=== PATIENT | male | born 1970 | race African-American/Black ===

== ENCOUNTER 2022-05-11 10:30 | Inpatient (IN) | payer OTHER ==
[2022-05-11 11:16] VITALS: BMI 27.3
[2022-05-11] MEDS ORDERED: guaiFENesin 200 MG/10 ML 10 ML UNIT-DOSE CUPS PO PRN (13:03)
[2022-05-11] MEDS ORDERED: MAGNESIUM HYDROX 2400MG/30ML ORAL SUSPENSION 30 ML CUP PO PRN (13:03)
[2022-05-11] MEDS ORDERED: P-EPHED 60MG/TRIPROLIDI 2.5MG TABLET PO PRN (13:03)
[2022-05-11] MEDS ORDERED: POLYETHYLENE GLYCOL (HEALTHYLAX) 3350 17 GM PACKET PO PRN (13:03)
[2022-05-11] MEDS ORDERED: BENZOCAINE/MENTHOL (CHLORASEPTIC ) LOZENGE MM PRN (13:03)
[2022-05-11] MEDS ORDERED: LOPERAMIDE HCL 2 MG CAPSULE PO PRN (13:03)
[2022-05-11] MEDS ORDERED: MAG HYDROX/AL HYDROX/SIMETH 30 ML UNIT-DOSE CUP PO PRN (13:03)
[2022-05-11] MEDS ORDERED: NALOXONE HCL (KLOXXADO) 8 MG SPRAY NS PRN (13:03)
[2022-05-11] MEDS ORDERED: NICOTINE 10 MG CARTRIDGE (INHALER) IH PRN (13:03)
[2022-05-11] MEDS ORDERED: NICOTINE 7 MG/24 HOURS TOPICAL PATCH TD SCH (13:15)
[2022-05-11] MEDS ORDERED: amLODIPine BESYLATE 10 MG TABLET (FP) PO ONE (17:10)
[2022-05-11] MEDS: PRENATAL VITAMINS W/ FOLIC ACID TABLET (FP) PO SCH (17:24)
[2022-05-11] MEDS: NICOTINE 14 MG/24 HOURS TOPICAL PATCH TD SCH (17:24)
[2022-05-11 19:49] LABS: HEMATOCRIT 34.2 % (35.4-49); HEMOGLOBIN 10.8 GM/dL (11.7-16.9); MCH 26.4 pg (25.7-33.7); MCHC 31.6 g/dl (32.0-35.9); MEAN CELL VOLUME 83.5 fl (80-96); MEAN PLT VOLUME 8.7 fl (7.5-11.1); PLATELET COUNT 291 10^3/uL (134-434); RBC 4.09 M/mm3 (4.00-5.60); RDW 16.3 % (11.9-15.9); WHITE BLOOD COUNT 4.6 K/mm3 (4.0-10.0)
[2022-05-11 20:01] LABS: CALCIUM 8.9 mg/dL (8.5-10.1)
[2022-05-11 20:02] LABS: ALBUMIN 3.4 g/dl (3.4-5.0); BLOOD UREA NITROGEN 18.3 mg/dL (7-18)
[2022-05-11 20:05] LABS: CREATININE 1.1 mg/dL (0.55-1.3)
[2022-05-11 20:06] LABS: BILIRUBIN,TOTAL 0.3 mg/dL (0.2-1); TOT PROT 6.8 g/dl (6.4-8.2)
[2022-05-11 21:14] LABS: PH,URINE 5.5 (5.0-8.0); URINE APPEARANCE CLEAR; URINE BILIRUBIN NEGATIVE (NEGATIVE); URINE COLOR YELLOW; URINE GLUCOSE (UA) NEGATIVE (NEGATIVE); URINE KETONE TRACE (NEGATIVE); URINE LEUK ESTERASE NEGATIVE (NEGATIVE); URINE NITRITE NEGATIVE (NEGATIVE); URINE PROTEIN NEGATIVE (NEGATIVE); URINE UROBILINOGEN 0.2 mg/dL (0.2-1.0)
[2022-05-11] MEDS: THIAMINE HCL 100 MG TABLET (FP) PO SCH (21:31)
[2022-05-11] MEDS: ACETAMINOPHEN 325 MG TABLET (FP) PO PRN (21:32)
[2022-05-11] MEDS ORDERED: MELATONIN 5 MG TABLETS PO SCH (22:00)
[2022-05-12] MEDS: IBUPROFEN 400 MG TABLET (FP) PO PRN (08:51)
[2022-05-12] MEDS: NICOTINE 14 MG/24 HOURS TOPICAL PATCH TD SCH (09:01)
[2022-05-12] MEDS: PRENATAL VITAMINS W/ FOLIC ACID TABLET (FP) PO SCH (09:02)
[2022-05-12] MEDS: amLODIPine BESYLATE 10 MG TABLET (FP) PO SCH (09:02)
[2022-05-12] MEDS ORDERED: LOSARTAN POTASSIUM 50 MG TABLET PO SCH (10:00)
[2022-05-12] MEDS: FERROUS SO4 325 MG TABLET (FP) PO SCH (10:32)
[2022-05-12] MEDS ORDERED: LOSARTAN POTASSIUM 25 MG TABLET PO ONE (12:28)
[2022-05-12] MEDS: THIAMINE HCL 100 MG TABLET (FP) PO SCH (21:34)
[2022-05-12] MEDS: traZODone HCL 100 MG TABLET (FP) PO SCH (21:34)
[2022-05-13] MEDS: hydrOXYzine PAMOATE 25 MG CAPSULE (FP) PO PRN ×2 (06:36→15:49)
[2022-05-13] MEDS: IBUPROFEN 400 MG TABLET (FP) PO PRN (06:37)
[2022-05-13] MEDS: NICOTINE 14 MG/24 HOURS TOPICAL PATCH TD SCH (10:00)
[2022-05-13] MEDS: FERROUS SO4 325 MG TABLET (FP) PO SCH (10:00)
[2022-05-13] MEDS: amLODIPine BESYLATE 10 MG TABLET (FP) PO SCH (10:00)
[2022-05-13] MEDS: PRENATAL VITAMINS W/ FOLIC ACID TABLET (FP) PO SCH (10:00)
[2022-05-13] MEDS: LOSARTAN POTASSIUM 25 MG TABLET PO SCH (10:00)
[2022-05-13] MEDS ORDERED: cloNIDine HCL 0.1 MG TABLET PO ONE (15:53)
[2022-05-13] MEDS: THIAMINE HCL 100 MG TABLET (FP) PO SCH (21:31)
[2022-05-13] MEDS: traZODone HCL 100 MG TABLET (FP) PO SCH (21:31)
[2022-05-14] MEDS: amLODIPine BESYLATE 10 MG TABLET (FP) PO SCH (10:18)
[2022-05-14] MEDS: FERROUS SO4 325 MG TABLET (FP) PO SCH (10:18)
[2022-05-14] MEDS: NICOTINE 14 MG/24 HOURS TOPICAL PATCH TD SCH (10:18)
[2022-05-14] MEDS: LOSARTAN POTASSIUM 25 MG TABLET PO SCH (10:18)
[2022-05-14] MEDS: PRENATAL VITAMINS W/ FOLIC ACID TABLET (FP) PO SCH (10:18)
[2022-05-14] MEDS: THIAMINE HCL 100 MG TABLET (FP) PO SCH (21:54)
[2022-05-14] MEDS: traZODone HCL 100 MG TABLET (FP) PO SCH (21:54)
[2022-05-14] MEDS: IBUPROFEN 400 MG TABLET (FP) PO PRN (21:55)
[2022-05-15] MEDS: FERROUS SO4 325 MG TABLET (FP) PO SCH (10:14)
[2022-05-15] MEDS: LOSARTAN POTASSIUM 25 MG TABLET PO SCH (10:14)
[2022-05-15] MEDS: amLODIPine BESYLATE 10 MG TABLET (FP) PO SCH (10:14)
[2022-05-15] MEDS: PRENATAL VITAMINS W/ FOLIC ACID TABLET (FP) PO SCH (10:15)
[2022-05-15] MEDS: NICOTINE 14 MG/24 HOURS TOPICAL PATCH TD SCH (10:15)
[2022-05-15] MEDS: IBUPROFEN 400 MG TABLET (FP) PO PRN ×2 (10:16→21:05)
[2022-05-15] MEDS: THIAMINE HCL 100 MG TABLET (FP) PO SCH (21:04)
[2022-05-15] MEDS: traZODone HCL 100 MG TABLET (FP) PO SCH (21:06)
[2022-05-16] MEDS: FERROUS SO4 325 MG TABLET (FP) PO SCH (10:19)
[2022-05-16] MEDS: amLODIPine BESYLATE 10 MG TABLET (FP) PO SCH (10:19)
[2022-05-16] MEDS: PRENATAL VITAMINS W/ FOLIC ACID TABLET (FP) PO SCH (10:19)
[2022-05-16] MEDS: LOSARTAN POTASSIUM 25 MG TABLET PO SCH (10:19)
[2022-05-16] MEDS: NICOTINE 14 MG/24 HOURS TOPICAL PATCH TD SCH (10:19)
[2022-05-16] MEDS: IBUPROFEN 400 MG TABLET (FP) PO PRN (14:03)
[2022-05-16] MEDS: THIAMINE HCL 100 MG TABLET (FP) PO SCH (21:18)
[2022-05-16] MEDS: QUEtiapine FUMARATE 100 MG TABLET (FP) PO SCH (21:19)
[2022-05-16] MEDS: hydrOXYzine PAMOATE 25 MG CAPSULE (FP) PO PRN (21:19)
[2022-05-17] MEDS: NICOTINE 14 MG/24 HOURS TOPICAL PATCH TD SCH (09:50)
[2022-05-17] MEDS: PRENATAL VITAMINS W/ FOLIC ACID TABLET (FP) PO SCH (09:50)
[2022-05-17] MEDS: FERROUS SO4 325 MG TABLET (FP) PO SCH (09:50)
[2022-05-17] MEDS: amLODIPine BESYLATE 10 MG TABLET (FP) PO SCH (09:51)
[2022-05-17] MEDS: LOSARTAN POTASSIUM 25 MG TABLET PO SCH (09:51)
[2022-05-17] MEDS: IBUPROFEN 400 MG TABLET (FP) PO PRN (09:52)
[2022-05-17] MEDS ORDERED: BUPRENORPHINE/NALOXONE 4 MG/1 MG FILM PACKET SL ONE (10:20)
[2022-05-17] MEDS: THIAMINE HCL 100 MG TABLET (FP) PO SCH (21:46)
[2022-05-17] MEDS: QUEtiapine FUMARATE 100 MG TABLET (FP) PO SCH (21:46)
[2022-05-18] MEDS: PRENATAL VITAMINS W/ FOLIC ACID TABLET (FP) PO SCH (09:35)
[2022-05-18] MEDS: NICOTINE 14 MG/24 HOURS TOPICAL PATCH TD SCH (09:35)
[2022-05-18] MEDS: amLODIPine BESYLATE 10 MG TABLET (FP) PO SCH (09:35)
[2022-05-18] MEDS: LOSARTAN POTASSIUM 25 MG TABLET PO SCH (09:35)
[2022-05-18] MEDS: FERROUS SO4 325 MG TABLET (FP) PO SCH (09:35)
[2022-05-18] MEDS: BUPRENORPHINE/NALOXONE 4 MG/1 MG FILM PACKET SL SCH (09:36)
[2022-05-18] MEDS ORDERED: AMMONIUM LACTATE 12% LOTION 225 GM BOTTLE TP PRN (11:23)
[2022-05-18] MEDS: TOLNAFTATE 1% CREAM 15 GM TUBE TP SCH ×2 (13:45→21:21)
[2022-05-18] MEDS: THIAMINE HCL 100 MG TABLET (FP) PO SCH (21:20)
[2022-05-18] MEDS: QUEtiapine FUMARATE 100 MG TABLET (FP) PO SCH (21:20)
[2022-05-18] MEDS: IBUPROFEN 400 MG TABLET (FP) PO PRN (21:22)
[2022-05-19] MEDS: LOSARTAN POTASSIUM 25 MG TABLET PO SCH (09:55)
[2022-05-19] MEDS: amLODIPine BESYLATE 10 MG TABLET (FP) PO SCH (09:55)
[2022-05-19] MEDS: BUPRENORPHINE/NALOXONE 4 MG/1 MG FILM PACKET SL SCH (09:55)
[2022-05-19] MEDS: FERROUS SO4 325 MG TABLET (FP) PO SCH (09:56)
[2022-05-19] MEDS: PRENATAL VITAMINS W/ FOLIC ACID TABLET (FP) PO SCH (09:56)
[2022-05-19] MEDS: NICOTINE 14 MG/24 HOURS TOPICAL PATCH TD SCH (09:56)
[2022-05-19] MEDS: TOLNAFTATE 1% CREAM 15 GM TUBE TP SCH ×2 (09:57→21:33)
[2022-05-19] MEDS: THIAMINE HCL 100 MG TABLET (FP) PO SCH (21:33)
[2022-05-19] MEDS: QUEtiapine FUMARATE 50 MG TABLET PO PRN (21:34)
[2022-05-20] MEDS: LOSARTAN POTASSIUM 25 MG TABLET PO SCH (10:12)
[2022-05-20] MEDS: PRENATAL VITAMINS W/ FOLIC ACID TABLET (FP) PO SCH (10:12)
[2022-05-20] MEDS: FERROUS SO4 325 MG TABLET (FP) PO SCH (10:12)
[2022-05-20] MEDS: BUPRENORPHINE/NALOXONE 4 MG/1 MG FILM PACKET SL SCH (10:12)
[2022-05-20] MEDS: TOLNAFTATE 1% CREAM 15 GM TUBE TP SCH ×2 (10:12→22:00)
[2022-05-20] MEDS: amLODIPine BESYLATE 10 MG TABLET (FP) PO SCH (10:13)
[2022-05-20] MEDS: NICOTINE 14 MG/24 HOURS TOPICAL PATCH TD SCH (10:13)
[2022-05-20] MEDS: THIAMINE HCL 100 MG TABLET (FP) PO SCH (22:00)
[2022-05-20] MEDS: QUEtiapine FUMARATE 50 MG TABLET PO PRN (22:01)
[2022-05-20] MEDS: ACETAMINOPHEN 325 MG TABLET (FP) PO PRN (22:01)
[2022-05-21] MEDS: BUPRENORPHINE/NALOXONE 4 MG/1 MG FILM PACKET SL SCH (09:55)
[2022-05-21] MEDS: NICOTINE 14 MG/24 HOURS TOPICAL PATCH TD SCH (09:56)
[2022-05-21] MEDS: TOLNAFTATE 1% CREAM 15 GM TUBE TP SCH ×2 (09:56→21:48)
[2022-05-21] MEDS: amLODIPine BESYLATE 10 MG TABLET (FP) PO SCH (09:56)
[2022-05-21] MEDS: FERROUS SO4 325 MG TABLET (FP) PO SCH (09:56)
[2022-05-21] MEDS: LOSARTAN POTASSIUM 25 MG TABLET PO SCH (09:56)
[2022-05-21] MEDS: PRENATAL VITAMINS W/ FOLIC ACID TABLET (FP) PO SCH (09:56)
[2022-05-21] MEDS: THIAMINE HCL 100 MG TABLET (FP) PO SCH (21:48)
[2022-05-21] MEDS: QUEtiapine FUMARATE 50 MG TABLET PO PRN (21:49)
[2022-05-21] MEDS: IBUPROFEN 400 MG TABLET (FP) PO PRN (21:49)
[2022-05-22] MEDS: LOSARTAN POTASSIUM 25 MG TABLET PO SCH (10:11)
[2022-05-22] MEDS: FERROUS SO4 325 MG TABLET (FP) PO SCH (10:11)
[2022-05-22] MEDS: PRENATAL VITAMINS W/ FOLIC ACID TABLET (FP) PO SCH (10:12)
[2022-05-22] MEDS: BUPRENORPHINE/NALOXONE 4 MG/1 MG FILM PACKET SL SCH (10:12)
[2022-05-22] MEDS: TOLNAFTATE 1% CREAM 15 GM TUBE TP SCH ×2 (10:12→21:37)
[2022-05-22] MEDS: NICOTINE 14 MG/24 HOURS TOPICAL PATCH TD SCH (10:12)
[2022-05-22] MEDS: amLODIPine BESYLATE 10 MG TABLET (FP) PO SCH (10:12)
[2022-05-22] MEDS: THIAMINE HCL 100 MG TABLET (FP) PO SCH (21:35)
[2022-05-22] MEDS: QUEtiapine FUMARATE 50 MG TABLET PO PRN (21:35)
[2022-05-22] MEDS: ACETAMINOPHEN 325 MG TABLET (FP) PO PRN (21:36)
[2022-05-23] MEDS: LOSARTAN POTASSIUM 25 MG TABLET PO SCH (09:41)
[2022-05-23] MEDS: BUPRENORPHINE/NALOXONE 4 MG/1 MG FILM PACKET SL SCH ×2 (09:41→21:22)
[2022-05-23] MEDS: FERROUS SO4 325 MG TABLET (FP) PO SCH (09:41)
[2022-05-23] MEDS: TOLNAFTATE 1% CREAM 15 GM TUBE TP SCH ×2 (09:41→21:24)
[2022-05-23] MEDS: PRENATAL VITAMINS W/ FOLIC ACID TABLET (FP) PO SCH (09:41)
[2022-05-23] MEDS: amLODIPine BESYLATE 10 MG TABLET (FP) PO SCH (09:41)
[2022-05-23] MEDS: NICOTINE 14 MG/24 HOURS TOPICAL PATCH TD SCH (09:42)
[2022-05-23] MEDS: QUEtiapine FUMARATE 50 MG TABLET PO PRN (21:21)
[2022-05-23] MEDS: IBUPROFEN 400 MG TABLET (FP) PO PRN (21:22)
[2022-05-23] MEDS: THIAMINE HCL 100 MG TABLET (FP) PO SCH (21:22)
[2022-05-24] MEDS: BUPRENORPHINE/NALOXONE 4 MG/1 MG FILM PACKET SL SCH ×2 (09:55→21:19)
[2022-05-24] MEDS: amLODIPine BESYLATE 10 MG TABLET (FP) PO SCH (09:55)
[2022-05-24] MEDS: PRENATAL VITAMINS W/ FOLIC ACID TABLET (FP) PO SCH (09:55)
[2022-05-24] MEDS: LOSARTAN POTASSIUM 25 MG TABLET PO SCH (09:55)
[2022-05-24] MEDS: FERROUS SO4 325 MG TABLET (FP) PO SCH (09:55)
[2022-05-24] MEDS: NICOTINE 14 MG/24 HOURS TOPICAL PATCH TD SCH (09:55)
[2022-05-24] MEDS: TOLNAFTATE 1% CREAM 15 GM TUBE TP SCH ×2 (09:56→21:20)
[2022-05-24] MEDS: QUEtiapine FUMARATE 50 MG TABLET PO PRN (21:19)
[2022-05-24] MEDS: THIAMINE HCL 100 MG TABLET (FP) PO SCH (21:19)
[2022-05-25] MEDS: PRENATAL VITAMINS W/ FOLIC ACID TABLET (FP) PO SCH (09:46)
[2022-05-25] MEDS: BUPRENORPHINE/NALOXONE 4 MG/1 MG FILM PACKET SL SCH ×2 (09:47→21:24)
[2022-05-25] MEDS: amLODIPine BESYLATE 10 MG TABLET (FP) PO SCH (09:47)
[2022-05-25] MEDS: FERROUS SO4 325 MG TABLET (FP) PO SCH (09:47)
[2022-05-25] MEDS: LOSARTAN POTASSIUM 25 MG TABLET PO SCH (09:47)
[2022-05-25] MEDS: NICOTINE 14 MG/24 HOURS TOPICAL PATCH TD SCH (09:49)
[2022-05-25] MEDS: TOLNAFTATE 1% CREAM 15 GM TUBE TP SCH ×2 (09:53→21:24)
[2022-05-25] MEDS: QUEtiapine FUMARATE 50 MG TABLET PO PRN (21:23)
[2022-05-25] MEDS: THIAMINE HCL 100 MG TABLET (FP) PO SCH (21:23)
[2022-05-25] MEDS: IBUPROFEN 400 MG TABLET (FP) PO PRN (21:24)
[2022-05-26] MEDS: BUPRENORPHINE/NALOXONE 4 MG/1 MG FILM PACKET SL SCH ×2 (09:55→21:14)
[2022-05-26] MEDS: TOLNAFTATE 1% CREAM 15 GM TUBE TP SCH ×2 (09:55→21:13)
[2022-05-26] MEDS: FERROUS SO4 325 MG TABLET (FP) PO SCH (09:56)
[2022-05-26] MEDS: LOSARTAN POTASSIUM 25 MG TABLET PO SCH (09:56)
[2022-05-26] MEDS: PRENATAL VITAMINS W/ FOLIC ACID TABLET (FP) PO SCH (09:56)
[2022-05-26] MEDS: amLODIPine BESYLATE 10 MG TABLET (FP) PO SCH (09:56)
[2022-05-26] MEDS: NICOTINE 14 MG/24 HOURS TOPICAL PATCH TD SCH (09:56)
[2022-05-26] MEDS: DOCUSATE SODIUM 100 MG CAPSULE (FP) PO SCH ×2 (13:10→21:13)
[2022-05-26] MEDS: QUEtiapine FUMARATE 50 MG TABLET PO PRN (21:13)
[2022-05-26] MEDS: THIAMINE HCL 100 MG TABLET (FP) PO SCH (21:13)
[2022-05-27] MEDS: PRENATAL VITAMINS W/ FOLIC ACID TABLET (FP) PO SCH (09:51)
[2022-05-27] MEDS: TOLNAFTATE 1% CREAM 15 GM TUBE TP SCH ×2 (09:52→21:37)
[2022-05-27] MEDS: LOSARTAN POTASSIUM 25 MG TABLET PO SCH (09:52)
[2022-05-27] MEDS: NICOTINE 14 MG/24 HOURS TOPICAL PATCH TD SCH (09:52)
[2022-05-27] MEDS: DOCUSATE SODIUM 100 MG CAPSULE (FP) PO SCH ×2 (09:52→21:37)
[2022-05-27] MEDS: amLODIPine BESYLATE 10 MG TABLET (FP) PO SCH (09:52)
[2022-05-27] MEDS: BUPRENORPHINE/NALOXONE 4 MG/1 MG FILM PACKET SL SCH ×2 (09:52→21:37)
[2022-05-27] MEDS: FERROUS SO4 325 MG TABLET (FP) PO SCH (09:52)
[2022-05-27] MEDS: THIAMINE HCL 100 MG TABLET (FP) PO SCH (21:37)
[2022-05-27] MEDS: IBUPROFEN 400 MG TABLET (FP) PO PRN (21:39)
[2022-05-27] MEDS: QUEtiapine FUMARATE 50 MG TABLET PO PRN (21:39)
[2022-05-28] MEDS: NICOTINE 14 MG/24 HOURS TOPICAL PATCH TD SCH (09:51)
[2022-05-28] MEDS: PRENATAL VITAMINS W/ FOLIC ACID TABLET (FP) PO SCH (09:51)
[2022-05-28] MEDS: FERROUS SO4 325 MG TABLET (FP) PO SCH (09:51)
[2022-05-28] MEDS: LOSARTAN POTASSIUM 25 MG TABLET PO SCH (09:51)
[2022-05-28] MEDS: amLODIPine BESYLATE 10 MG TABLET (FP) PO SCH (09:51)
[2022-05-28] MEDS: BUPRENORPHINE/NALOXONE 4 MG/1 MG FILM PACKET SL SCH ×2 (09:51→21:15)
[2022-05-28] MEDS: DOCUSATE SODIUM 100 MG CAPSULE (FP) PO SCH ×2 (09:51→21:14)
[2022-05-28] MEDS: TOLNAFTATE 1% CREAM 15 GM TUBE TP SCH ×2 (09:52→21:15)
[2022-05-28] MEDS: QUEtiapine FUMARATE 50 MG TABLET PO PRN (21:15)
[2022-05-28] MEDS: IBUPROFEN 400 MG TABLET (FP) PO PRN (21:15)
[2022-05-28] MEDS: THIAMINE HCL 100 MG TABLET (FP) PO SCH (21:15)
[2022-05-29] MEDS: NICOTINE 14 MG/24 HOURS TOPICAL PATCH TD SCH (10:06)
[2022-05-29] MEDS: PRENATAL VITAMINS W/ FOLIC ACID TABLET (FP) PO SCH (10:06)
[2022-05-29] MEDS: BUPRENORPHINE/NALOXONE 4 MG/1 MG FILM PACKET SL SCH ×2 (10:06→21:42)
[2022-05-29] MEDS: DOCUSATE SODIUM 100 MG CAPSULE (FP) PO SCH ×2 (10:07→21:41)
[2022-05-29] MEDS: LOSARTAN POTASSIUM 25 MG TABLET PO SCH (10:07)
[2022-05-29] MEDS: amLODIPine BESYLATE 10 MG TABLET (FP) PO SCH (10:07)
[2022-05-29] MEDS: FERROUS SO4 325 MG TABLET (FP) PO SCH (10:07)
[2022-05-29] MEDS: TOLNAFTATE 1% CREAM 15 GM TUBE TP SCH ×2 (10:07→21:41)
[2022-05-29] MEDS: QUEtiapine FUMARATE 50 MG TABLET PO PRN (21:41)
[2022-05-29] MEDS: IBUPROFEN 400 MG TABLET (FP) PO PRN (21:42)
[2022-05-29] MEDS: THIAMINE HCL 100 MG TABLET (FP) PO SCH (21:42)
[2022-05-30] MEDS: PRENATAL VITAMINS W/ FOLIC ACID TABLET (FP) PO SCH (11:11)
[2022-05-30] MEDS: DOCUSATE SODIUM 100 MG CAPSULE (FP) PO SCH ×2 (11:12→21:43)
[2022-05-30] MEDS: NICOTINE 14 MG/24 HOURS TOPICAL PATCH TD SCH (11:13)
[2022-05-30] MEDS: amLODIPine BESYLATE 10 MG TABLET (FP) PO SCH (11:13)
[2022-05-30] MEDS: FERROUS SO4 325 MG TABLET (FP) PO SCH (11:13)
[2022-05-30] MEDS: BUPRENORPHINE/NALOXONE 4 MG/1 MG FILM PACKET SL SCH ×2 (11:13→21:44)
[2022-05-30] MEDS: TOLNAFTATE 1% CREAM 15 GM TUBE TP SCH ×2 (11:14→21:43)
[2022-05-30] MEDS: LOSARTAN POTASSIUM 25 MG TABLET PO SCH (11:16)
[2022-05-30] MEDS: THIAMINE HCL 100 MG TABLET (FP) PO SCH (21:42)
[2022-05-30] MEDS: QUEtiapine FUMARATE 50 MG TABLET PO PRN (21:42)
[2022-05-30] MEDS: IBUPROFEN 400 MG TABLET (FP) PO PRN (21:44)
[2022-05-31] MEDS: PRENATAL VITAMINS W/ FOLIC ACID TABLET (FP) PO SCH (10:02)
[2022-05-31] MEDS: NICOTINE 14 MG/24 HOURS TOPICAL PATCH TD SCH (10:02)
[2022-05-31] MEDS: BUPRENORPHINE/NALOXONE 4 MG/1 MG FILM PACKET SL SCH ×2 (10:02→21:34)
[2022-05-31] MEDS: DOCUSATE SODIUM 100 MG CAPSULE (FP) PO SCH ×2 (10:03→21:33)
[2022-05-31] MEDS: FERROUS SO4 325 MG TABLET (FP) PO SCH (10:03)
[2022-05-31] MEDS: LOSARTAN POTASSIUM 25 MG TABLET PO SCH (10:03)
[2022-05-31] MEDS: TOLNAFTATE 1% CREAM 15 GM TUBE TP SCH ×2 (10:03→21:57)
[2022-05-31] MEDS: amLODIPine BESYLATE 10 MG TABLET (FP) PO SCH (10:03)
[2022-05-31] MEDS: QUEtiapine FUMARATE 50 MG TABLET PO PRN (21:33)
[2022-05-31] MEDS: THIAMINE HCL 100 MG TABLET (FP) PO SCH (21:33)
[2022-05-31] MEDS: IBUPROFEN 400 MG TABLET (FP) PO PRN (21:34)
[2022-06-01] MEDS: amLODIPine BESYLATE 10 MG TABLET (FP) PO SCH (10:37)
[2022-06-01] MEDS: BUPRENORPHINE/NALOXONE 4 MG/1 MG FILM PACKET SL SCH ×2 (10:37→21:22)
[2022-06-01] MEDS: NICOTINE 14 MG/24 HOURS TOPICAL PATCH TD SCH (10:37)
[2022-06-01] MEDS: DOCUSATE SODIUM 100 MG CAPSULE (FP) PO SCH ×2 (10:37→21:21)
[2022-06-01] MEDS: FERROUS SO4 325 MG TABLET (FP) PO SCH (10:37)
[2022-06-01] MEDS: TOLNAFTATE 1% CREAM 15 GM TUBE TP SCH ×2 (10:37→21:21)
[2022-06-01] MEDS: LOSARTAN POTASSIUM 25 MG TABLET PO SCH (10:37)
[2022-06-01] MEDS: PRENATAL VITAMINS W/ FOLIC ACID TABLET (FP) PO SCH (10:37)
[2022-06-01] MEDS: THIAMINE HCL 100 MG TABLET (FP) PO SCH (21:21)
[2022-06-01] MEDS: QUEtiapine FUMARATE 50 MG TABLET PO PRN (21:21)
[2022-06-01] MEDS: METHOCARBAMOL 500 MG TABLET PO SCH (21:22)
[2022-06-02] MEDS: ACETAMINOPHEN 325 MG TABLET (FP) PO PRN (09:43)
[2022-06-02] MEDS: DOCUSATE SODIUM 100 MG CAPSULE (FP) PO SCH ×2 (09:44→21:33)
[2022-06-02] MEDS: FERROUS SO4 325 MG TABLET (FP) PO SCH (09:44)
[2022-06-02] MEDS: LOSARTAN POTASSIUM 25 MG TABLET PO SCH (09:45)
[2022-06-02] MEDS: METHOCARBAMOL 500 MG TABLET PO SCH ×2 (09:45→21:33)
[2022-06-02] MEDS: NICOTINE 14 MG/24 HOURS TOPICAL PATCH TD SCH (09:46)
[2022-06-02] MEDS: PRENATAL VITAMINS W/ FOLIC ACID TABLET (FP) PO SCH (09:46)
[2022-06-02] MEDS: BUPRENORPHINE/NALOXONE 4 MG/1 MG FILM PACKET SL SCH ×2 (09:46→21:34)
[2022-06-02] MEDS: amLODIPine BESYLATE 10 MG TABLET (FP) PO SCH (09:46)
[2022-06-02] MEDS: TOLNAFTATE 1% CREAM 15 GM TUBE TP SCH ×2 (09:47→21:33)
[2022-06-02] MEDS: IBUPROFEN 400 MG TABLET (FP) PO PRN (17:30)
[2022-06-02] MEDS: QUEtiapine FUMARATE 50 MG TABLET PO PRN (21:33)
[2022-06-02] MEDS: THIAMINE HCL 100 MG TABLET (FP) PO SCH (21:34)
[2022-06-03] MEDS: TOLNAFTATE 1% CREAM 15 GM TUBE TP SCH ×2 (09:36→21:45)
[2022-06-03] MEDS: amLODIPine BESYLATE 10 MG TABLET (FP) PO SCH (09:36)
[2022-06-03] MEDS: PRENATAL VITAMINS W/ FOLIC ACID TABLET (FP) PO SCH (09:36)
[2022-06-03] MEDS: LOSARTAN POTASSIUM 25 MG TABLET PO SCH (09:36)
[2022-06-03] MEDS: METHOCARBAMOL 500 MG TABLET PO SCH ×2 (09:36→21:44)
[2022-06-03] MEDS: BUPRENORPHINE/NALOXONE 4 MG/1 MG FILM PACKET SL SCH ×2 (09:36→22:55)
[2022-06-03] MEDS: FERROUS SO4 325 MG TABLET (FP) PO SCH (09:36)
[2022-06-03] MEDS: DOCUSATE SODIUM 100 MG CAPSULE (FP) PO SCH ×2 (09:36→21:44)
[2022-06-03] MEDS: NICOTINE 14 MG/24 HOURS TOPICAL PATCH TD SCH (09:39)
[2022-06-03] MEDS: QUEtiapine FUMARATE 50 MG TABLET PO PRN (21:44)
[2022-06-03] MEDS: THIAMINE HCL 100 MG TABLET (FP) PO SCH (21:44)
[2022-06-04] MEDS: PRENATAL VITAMINS W/ FOLIC ACID TABLET (FP) PO SCH (10:27)
[2022-06-04] MEDS: BUPRENORPHINE/NALOXONE 4 MG/1 MG FILM PACKET SL SCH ×3 (10:28→21:06)
[2022-06-04] MEDS: amLODIPine BESYLATE 10 MG TABLET (FP) PO SCH (10:28)
[2022-06-04] MEDS: DOCUSATE SODIUM 100 MG CAPSULE (FP) PO SCH ×2 (10:28→21:03)
[2022-06-04] MEDS: TOLNAFTATE 1% CREAM 15 GM TUBE TP SCH ×2 (10:28→21:05)
[2022-06-04] MEDS: METHOCARBAMOL 500 MG TABLET PO SCH ×2 (10:28→21:03)
[2022-06-04] MEDS: FERROUS SO4 325 MG TABLET (FP) PO SCH (10:28)
[2022-06-04] MEDS: NICOTINE 14 MG/24 HOURS TOPICAL PATCH TD SCH (10:28)
[2022-06-04] MEDS: LOSARTAN POTASSIUM 25 MG TABLET PO SCH (10:48)
[2022-06-04 11:36] VITALS: RESP 18
[2022-06-04] MEDS: THIAMINE HCL 100 MG TABLET (FP) PO SCH (21:02)
[2022-06-04] MEDS: QUEtiapine FUMARATE 50 MG TABLET PO PRN (21:03)
[2022-06-05] MEDS: amLODIPine BESYLATE 10 MG TABLET (FP) PO SCH (09:54)
[2022-06-05] MEDS: FERROUS SO4 325 MG TABLET (FP) PO SCH (09:54)
[2022-06-05] MEDS: BUPRENORPHINE/NALOXONE 4 MG/1 MG FILM PACKET SL SCH ×3 (09:54→21:56)
[2022-06-05] MEDS: PRENATAL VITAMINS W/ FOLIC ACID TABLET (FP) PO SCH (09:54)
[2022-06-05] MEDS: DOCUSATE SODIUM 100 MG CAPSULE (FP) PO SCH ×2 (09:54→21:56)
[2022-06-05] MEDS: METHOCARBAMOL 500 MG TABLET PO SCH ×2 (09:54→21:56)
[2022-06-05] MEDS: NICOTINE 14 MG/24 HOURS TOPICAL PATCH TD SCH (09:54)
[2022-06-05] MEDS: LOSARTAN POTASSIUM 25 MG TABLET PO SCH (09:55)
[2022-06-05] MEDS: ACETAMINOPHEN 325 MG TABLET (FP) PO PRN (09:56)
[2022-06-05] MEDS: TOLNAFTATE 1% CREAM 15 GM TUBE TP SCH ×2 (09:58→21:57)
[2022-06-05] MEDS: THIAMINE HCL 100 MG TABLET (FP) PO SCH (21:56)
[2022-06-05] MEDS: QUEtiapine FUMARATE 50 MG TABLET PO PRN (21:58)
[2022-06-06] MEDS: PRENATAL VITAMINS W/ FOLIC ACID TABLET (FP) PO SCH (11:04)
[2022-06-06] MEDS: TOLNAFTATE 1% CREAM 15 GM TUBE TP SCH ×2 (11:04→21:32)
[2022-06-06] MEDS: BUPRENORPHINE/NALOXONE 4 MG/1 MG FILM PACKET SL SCH ×2 (11:05→22:29)
[2022-06-06] MEDS: LOSARTAN POTASSIUM 25 MG TABLET PO SCH (11:05)
[2022-06-06] MEDS: amLODIPine BESYLATE 10 MG TABLET (FP) PO SCH (11:05)
[2022-06-06] MEDS: METHOCARBAMOL 500 MG TABLET PO SCH ×2 (11:05→21:32)
[2022-06-06] MEDS: FERROUS SO4 325 MG TABLET (FP) PO SCH (11:06)
[2022-06-06] MEDS: NICOTINE 14 MG/24 HOURS TOPICAL PATCH TD SCH (11:06)
[2022-06-06] MEDS: DOCUSATE SODIUM 100 MG CAPSULE (FP) PO SCH ×2 (11:06→21:32)
[2022-06-06] MEDS: QUEtiapine FUMARATE 50 MG TABLET PO PRN (21:31)
[2022-06-06] MEDS: THIAMINE HCL 100 MG TABLET (FP) PO SCH (21:32)
[2022-06-06] MEDS: IBUPROFEN 400 MG TABLET (FP) PO PRN (21:32)
[2022-06-07] MEDS: DOCUSATE SODIUM 100 MG CAPSULE (FP) PO SCH ×2 (10:27→21:31)
[2022-06-07] MEDS: PRENATAL VITAMINS W/ FOLIC ACID TABLET (FP) PO SCH (10:27)
[2022-06-07] MEDS: METHOCARBAMOL 500 MG TABLET PO SCH ×2 (10:27→21:31)
[2022-06-07] MEDS: FERROUS SO4 325 MG TABLET (FP) PO SCH (10:28)
[2022-06-07] MEDS: amLODIPine BESYLATE 10 MG TABLET (FP) PO SCH (10:28)
[2022-06-07] MEDS: TOLNAFTATE 1% CREAM 15 GM TUBE TP SCH ×2 (10:28→21:33)
[2022-06-07] MEDS: NICOTINE 14 MG/24 HOURS TOPICAL PATCH TD SCH (10:28)
[2022-06-07] MEDS: BUPRENORPHINE/NALOXONE 4 MG/1 MG FILM PACKET SL SCH ×2 (10:28→21:32)
[2022-06-07] MEDS: LOSARTAN POTASSIUM 25 MG TABLET PO SCH (10:28)
[2022-06-07] MEDS: QUEtiapine FUMARATE 50 MG TABLET PO PRN (21:31)
[2022-06-07] MEDS: THIAMINE HCL 100 MG TABLET (FP) PO SCH (21:31)
[2022-06-08 07:07] VITALS: BP 132/66; PULSE 68; TEMP 97.8
[2022-06-08] MEDS: amLODIPine BESYLATE 10 MG TABLET (FP) PO SCH (09:03)
[2022-06-08] MEDS: BUPRENORPHINE/NALOXONE 4 MG/1 MG FILM PACKET SL SCH (09:03)
[2022-06-08] MEDS: PRENATAL VITAMINS W/ FOLIC ACID TABLET (FP) PO SCH (09:03)
[2022-06-08] MEDS: FERROUS SO4 325 MG TABLET (FP) PO SCH (09:04)
[2022-06-08] MEDS: LOSARTAN POTASSIUM 25 MG TABLET PO SCH (09:04)
[2022-06-08] MEDS: DOCUSATE SODIUM 100 MG CAPSULE (FP) PO SCH (09:04)
[2022-06-08] MEDS: METHOCARBAMOL 500 MG TABLET PO SCH (09:04)
[2022-06-08] MEDS: NICOTINE 14 MG/24 HOURS TOPICAL PATCH TD SCH (09:05)
[2022-06-08] MEDS: TOLNAFTATE 1% CREAM 15 GM TUBE TP SCH (09:05)
== END 2022-06-08 09:17 | disposition home or self-care (01) | DRG 772 ==
LOC: YASAS 10:30 → Y3W 15:51
PROVIDERS: ADMIT Allergy & Immunology; ATTEND Psychiatry & Neurology Pain Medicine
PROC: HZ42ZZZ Group Counseling for Substance Abuse Treatment, Cognitive-Behavioral (ICD-10-PCS; principal; 2022-05-11)
DX: F11.20 Opioid dependence, uncomplicated (principal); F10.20 Alcohol dependence, uncomplicated; F13.20 Sedative, hypnotic or anxiolytic dependence, uncomplicated; F17.210 Nicotine dependence, cigarettes, uncomplicated; F19.280 Other psychoactive substance dependence with psychoactive substance-induced anxiety disorder; F19.282 Other psychoactive substance dependence with psychoactive substance-induced sleep disorder; F19.24 Other psychoactive substance dependence with psychoactive substance-induced mood disorder; F32.A Depression, unspecified; F41.9 Anxiety disorder, unspecified; G47.09 Other insomnia; I10 Essential (primary) hypertension; K59.00 Constipation, unspecified; B35.3 Tinea pedis; M62.838 Other muscle spasm; Z91.014 Allergy to mammalian meats; Z56.0 Unemployment, unspecified; Z59.00 Homelessness unspecified
CPT/HCPCS: 36415; 80053; 81003; 82962; 85027; 86780; 93005; 93010; C9803-CS; U0003; U0005